=== PATIENT | female | born 1940 | race Caucasian/White ===

== ENCOUNTER 2016-11-07 02:59 | Emergency (ER) | payer OTHER ==
[2016-11-07 03:09] VITALS: RESP 16
--- NOTE | 2016-11-07 03:36 | EDPHY ---
HPI/HX/ROS/PE/MDM Narrative: Chief complaint: Left wrist pain HPI: 76-year-old woman presenting complaining of worsening left wrist pain since about 8 o'clock last night. She denies any falls or trauma. Does have a history of some arthritis in that hand but has never hurt this much before. No redness. No numbness. Is having some tingling. No loss of sensation. Has taken some aspirin without relief. There is no pain proximal to her wrist. No chest pain or shortness of breath. No nausea or vomiting. She has had cellulitis in her legs in the past is concerned that this might represent cellulitis in her arm. Denies any skin neck is are irritations. No scratches. Has not had any rash. ROS: 10 point Review of Systems is negative except as noted in the HPI. Physical exam: Gen: Awake, Alert, No Distress Ext: no edema, she has tenderness along the radial rest and radiocarpal joints. Skin is not warm to touch. There is no erythema. There is some decreased range of motion however patient states that this is baseline. Sensations intact in the radial, median, and ulnar nerve distribution. Cap refills less than 2 seconds. Skin: no rash Neuro: CN II-XII intact, Sensation grossly intact, Strength 5/5 in bilateral upper and lower extremities ED Course: Left wrist x-ray shows degenerative changes but no acute process per my interpretation. 76-year-old with left wrist pain. She is concerned about the possibility of infection but there is no erythema. Not warm to the touch. She has not have any skin breaks or lesions to suggest infectious process. She is afebrile. I have given her a single hydrocodone here. I have instructed her to keep a close eye on it. If there is increasing pain, signs of redness, fevers, chills , or any other concerns that she should have re-presented to the emergency department immediately for further evaluation. Otherwise she will follow with primary care physician in next 1-2 days. - Data Points Medications Given: Discontinued Medications Acetaminophen/Hydrocodone Bitart ([place] 5/325) 1 tab PO EDNOW ONE Stop: 11/07/16 03:42 Last Admin: 11/07/16 04:00 Dose: 1 tab General Time Seen by Provider: 11/07/16 03:29 Initial Vital Signs: Initial Vital Signs Temperature (C) 37.1 C 11/07/16 03:06 Heart Rate 88 11/07/16 03:06 Respiratory Rate 16 11/07/16 03:06 Blood Pressure 156/77 H 11/07/16 03:06 O2 Sat (%) 93 11/07/16 03:06 O2 Delivery Mode Room Air Allergies/Adverse Reactions: No Known Allergies Allergy (Unverified 05/15/10 16:39) Home Medications: Medication Instructions Recorded Estrogens,Conjugated 05/15/10 Hctz 05/15/10 LEXAPRO 05/15/10 Lipitor 10 mg 05/15/10 Norvasc 10 mg 05/15/10 PROGESTERONE 05/15/10 SYNTHROID 05/15/10 Wellbutrin Sr 11/07/16 Departure - Departure Disposition: Home, Routine, Self-Care Clinical Impression: Arthritis Condition: Good Instructions: Hydrocodone/Acetaminophen (By mouth), Osteoarthritis (ED) Additional Instructions: You may take hydrocodone for the pain. Follow up with your primary care physician in the next 1-2 days for re- evaluation. Return to the emergency department for redness, increasing swelling, increasing pain, or other concerns. Referrals: Amy Hidalgo MD [Primary Care Provider] - As per Instructions
[2016-11-07] MEDS ORDERED: HYDROCODONE/APAP 5/325 TAB PO ONE (03:41)
[2016-11-07] MEDS ORDERED: HYDROCOD/APAP 5/325 PREPACK#6 BTL TAKEHOME ONE (04:02)
[2016-11-07 04:14] VITALS: BP 128/76; PULSE 77; TEMP 98.6; O2SAT 91
--- NOTE | 2016-11-07 09:10 | DX ---
Left Wrist, 4 views including a navicular view History: Atraumatic wrist pain Comparison: none Findings: There is severe osteoarthritic change of the greater multangular-first metacarpal joint wi th sclerosis and periarticular degenerative cyst formation and what may be old healed fracture deform ities of the base of the first metacarpal as well is the greater multangular bone. There is mild oste oarthritic narrowing of the joint between the navicular and both multangular bones. This includes a d egenerative cyst in the distal lateral pole of the navicular. There is hypertrophic change of the fir st metacarpal head along with a degenerative cyst in the distal first minute carpal metaphysis. Overall mineralization is normal. Impression: Osteoarthritis, likely posttraumatic.
== END 2016-11-07 04:14 | disposition home or self-care (01) ==
DX: M19.032 Primary osteoarthritis, left wrist (principal)

== ENCOUNTER → 2016-12-16 | Outpatient (CLI) | payer OTHER | LOC: FCPNEURO 23:03 | PROVIDERS: ATTEND Psychiatry & Neurology Sleep Medicine | DX: G47.33 Obstructive sleep apnea (adult) (pediatric) (principal); J96.11 Chronic respiratory failure with hypoxia ==

== ENCOUNTER → 2017-04-19 | Outpatient (CLI) | payer OTHER | LOC: GIMAGING 13:50 | PROVIDERS: ATTEND Registered Nurse | DX: R05 Cough (principal); R50.9 Fever, unspecified; R91.8 Other nonspecific abnormal finding of lung field | CPT/HCPCS: 71020-PO ==

== ENCOUNTER → 2017-06-18 | Outpatient (CLI) | payer OTHER | LOC: FIMAGING 11:13 | PROVIDERS: ATTEND Family Medicine | DX: Z12.31 Encounter for screening mammogram for malignant neoplasm of breast (principal) | CPT/HCPCS: G0202 ==

== ENCOUNTER → 2018-07-16 | Outpatient (CLI) | payer OTHER | LOC: FIMAGING 10:26 | PROVIDERS: ATTEND Family Medicine | DX: Z12.31 Encounter for screening mammogram for malignant neoplasm of breast (principal) ==

== ENCOUNTER → 2018-07-29 | Outpatient (CLI) | payer OTHER | LOC: CIMAGING 12:05 | PROVIDERS: ATTEND Family Medicine | DX: M51.36 Other intervertebral disc degeneration, lumbar region (principal); M17.0 Bilateral primary osteoarthritis of knee | CPT/HCPCS: 72100-PO; 73562-PO ==

== ENCOUNTER 2019-01-20 11:45 | Inpatient (IN) | payer OTHER ==
--- NOTE | 2019-01-20 12:18 | EDPHY ---
H & P Time Seen by Provider: 01/20/19 12:17 HPI/ROS: CHIEF COMPLAINT: Back pain and fever HISTORY OF PRESENT ILLNESS: Patient started having symptoms after last Saturday' s visit to the sleep clinic. She says she is having worsening low to mid back pain which is worse with walking or standing. She has some ongoing back pain and got a steroid injection 3 weeks ago with this is higher and a little bit different than her chronic pain. Associated with a fever of 101 degrees yesterday and today. Pain is also little bit worse with deep breath but no cough and no pain up in her chest. Symptoms moderate to severe and prevented her from really getting around very well. No recent dental work or skin rash or sore throat. REVIEW OF SYSTEMS: Eye: no change in vision ENT: no sore throat Cardiac: no chest pain or syncope Pulmonary: HPI no cough or hemoptysis Abdomen: no vomiting, diarrhea, abdominal pain Musculoskeletal: HPI Skin: no rash Neuro: no headache, no weakness or numbness in legs or feet. No incontinence. Constitutional: HPI : no urinary symptoms A comprehensive 10 point review of systems is otherwise negative aside from elements mentioned in the history of present illness. PAST MEDICAL HISTORY: Includes arthritis, asthma, cholecystectomy, sleep apnea on home O2, hypertension, hyperlipidemia, depression Family history: Positive for venous thromboembolism in her mother and her daughter Social history: Here with her daughter General Appearance: Alert and conversant, cooperative. Eyes: No scleral icterus. ENT, Mouth: Normal mucous membranes. Respiratory: Normal respiratory effort, breath sounds equal, lungs are clear to auscultation. Cardiovascular: Regular rate and rhythm. Gastrointestinal: Abdomen is soft and non tender. Neurological: Alert, face symmetric, normal motor and sensory in extremities. Toes downgoing bilaterally, no clonus, patellar reflexes 1+ symmetric. Skin: Warm and dry, no rashes. Musculoskeletal: Mild CVA tenderness but no midline spinal tenderness. Psychiatric: Not agitated. Emergency Department course/MDM: Results discussed with patient and daughter at 1:28 p.m.. Will treat for pyelonephritis with pyuria back pain and history of fever, CT angio chest with shortness of breath and elevated D-dimer and family history, will extend CT through abdomen pelvis to evaluate for pyelonephritis or perinephric abscess. Ceftriaxone 1 g IV and urine culture sent. Negative CT chest abdomen pelvis per Dr. Panda, except for some haziness around the pancreas. Lipase added. Admission for severity of symptoms. Considered epidural abscess but this point I think it is less likely. Smoking Status: Never smoked Constitutional: Initial Vital Signs Temperature (C) 37.3 C 01/20/19 11:59 Heart Rate 86 01/20/19 11:59 Respiratory Rate 18 01/20/19 11:59 Blood Pressure 138/76 H 01/20/19 11:59 O2 Sat (%) 92 01/20/19 11:59 O2 Delivery Mode Room Air Allergies/Adverse Reactions: No Known Allergies Allergy (Verified 01/20/19 12:05) Home Medications: Medication Instructions Recorded Atorvastatin Calcium [Lipitor 20 20 mg PO DAILY 05/15/10 mg (*)] Escitalopram Oxalate [Lexapro] 20 mg PO DAILY 05/15/10 Hydrochlorothiazide [HCTZ (*)] 25 mg PO DAILY 05/15/10 Levothyroxine [Synthroid 25 mcg 25 mcg PO DAILY06 05/15/10 (*)] amLODIPine BESYLATE [Norvasc 10 mg 10 mg PO DAILY 05/15/10 (*)] buPROPion SR [Wellbutrin 150mg SR 150 mg PO BID 11/07/16 (*)] Aspirin [Aspirin 81mg (*)] 81 mg PO DAILY 01/20/19 Medical Decision Making - Diagnostics EKG Interpretation: 12-lead EKG interpreted by me; official reading is in computer system. My interpretation is sinus rhythm rate 84 with low voltage Imaging Results: Imaging Impressions Chest X-Ray 01/20/19 12:30 Impression: 1. Possible cardiomegaly without decompensation. When the patient is clinically able a routine PA chest would be useful to better evaluate the cardiothoracic ratio. 2. COPD, without pneumonia. Abdomen CT 01/20/19 13:24 Impression: 1. No acute PE or abdominopelvic process by CT. 2. Mild haziness around the pancreatic uncinate process likely represents fat invagination. If there are symptoms, would recommend obtaining a lipase value. 3. Non-obstructing right renal stone. 4. There is a 2.6 cm lesion in the uterus, probably an intramural to submucosal fibroid. Would consider ultrasound for confirmation. Findings and recommendations discussed with EDGAR PARRISH at 1441 hour, 2018. Chest/Thorax CTA 01/20/19 13:24 Impression: 1. No acute PE or abdominopelvic process by CT. 2. Mild haziness around the pancreatic uncinate process likely represents fat invagination. If there are symptoms, would recommend obtaining a lipase value. 3. Non-obstructing right renal stone. 4. There is a 2.6 cm lesion in the uterus, probably an intramural to submucosal fibroid. Would consider ultrasound for confirmation. Findings and recommendations discussed with EDGAR PARRISH at 1441 hour, 2018. Imaging: Discussed imaging studies w/ call center supervisor Radiologist Differential Diagnosis: Differential considered including but not limited to PE, pyelonephritis, epidural abscess, diskitis, pancreatitis Consult/Admit Bed Type: [place] [address] - Data Points Laboratory Results: Laboratory Results 01/20/19 12:36 01/20/19 12:36 01/20/19 01/20/19 01/20/19 12:36 12:36 12:36 WBC RBC Hgb Hct MCV MCH MCHC RDW Plt Count MPV Neut % (Auto) Lymph % (Auto) [place] % (Auto) Eos % (Auto) Baso % (Auto) Nucleat RBC Rel Count Absolute Neuts (auto) Absolute Lymphs (auto) Absolute Monos (auto) Absolute Eos (auto) Absolute Basos (auto) Absolute Nucleated RBC Immature Gran % Immature Gran # ESR D-Dimer 1.20 ug/mLFEU H ug/mLFEU (0.00-0.50) Sodium 137 mEq/L mEq/L (135-145) Potassium 3.3 mEq/L L mEq/L (3.5-5.2) Chloride 102 mEq/L mEq/L (97-110) Carbon Dioxide 25 mEq/l mEq/l (22-31) Anion Gap 10 mEq/L mEq/L (6-14) BUN 17 mg/dL mg/dL (7-23) Creatinine 0.8 mg/dL mg/dL (0.6-1.0) Estimated GFR > 60 Glucose 97 mg/dL mg/dL (70-100) Calcium 9.0 mg/dL mg/dL (8.5-10.4) Total Bilirubin 2.6 mg/dL H mg/dL (0.1-1.4) Conjugated Bilirubin 0.4 mg/dL mg/dL (0.0-0.5) Unconjugated Bilirubin 2.2 mg/dL H mg/dL (0.0-1.1) AST 29 IU/L IU/L (14-46) ALT 41 IU/L IU/L (9-52) Alkaline Phosphatase 101 IU/L IU/L (38-126) C-Reactive Protein 74.7 mg/L H mg/L (<10.0) Total Protein 6.4 g/dL g/dL (6.3-8.2) Albumin 3.6 g/dL g/dL (3.5-5.0) Lipase 55 IU/L IU/L (23-300) Urine Color Urine Appearance Urine pH Ur Specific [place] Urine Protein Urine Ketones Urine Blood Urine Nitrate Urine Bilirubin Urine Urobilinogen Ur Leukocyte Esterase Urine RBC Urine WBC Ur Epithelial Cells Urine Mucus Urine Glucose 01/20/19 01/20/19 12:36 12:20 WBC 11.79 10^3/uL H 10^3/uL (3.80-9.50) RBC 4.15 10^6/uL L 10^6/uL (4.18-5.33) Hgb 12.2 g/dL L g/dL (12.6-16.3) Hct 36.0 % L % (38.0-47.0) MCV 86.7 fL fL (81.5-99.8) MCH 29.4 pg pg (27.9-34.1) MCHC 33.9 g/dL g/dL (32.4-36.7) RDW 14.7 % % (11.5-15.2) Plt Count 236 10^3/uL 10^3/uL (150-400) MPV 10.8 fL fL (8.7-11.7) Neut % (Auto) 74.7 % H % (39.3-74.2) Lymph % (Auto) 13.7 % L % (15.0-45.0) [place] % (Auto) 10.2 % % (4.5-13.0) Eos % (Auto) 0.8 % % (0.6-7.6) Baso % (Auto) 0.3 % % (0.3-1.7) Nucleat RBC Rel Count 0.0 % % (0.0-0.2) Absolute Neuts (auto) 8.80 10^3/uL H 10^3/uL (1.70-6.50) Absolute Lymphs (auto) 1.62 10^3/uL 10^3/uL (1.00-3.00) Absolute Monos (auto) 1.20 10^3/uL H 10^3/uL (0.30-0.80) Absolute Eos (auto) 0.09 10^3/uL 10^3/uL (0.03-0.40) Absolute Basos (auto) 0.04 10^3/uL 10^3/uL (0.02-0.10) Absolute Nucleated RBC 0.00 10^3/uL 10^3/uL (0-0.01) Immature Gran % 0.3 % % (0.0-1.1) Immature Gran # 0.04 10^3/uL 10^3/uL (0.00-0.10) ESR 67 MM/HR H MM/HR (0-30) D-Dimer Sodium Potassium Chloride Carbon Dioxide Anion Gap BUN Creatinine Estimated GFR Glucose Calcium Total Bilirubin Conjugated Bilirubin Unconjugated Bilirubin AST ALT Alkaline Phosphatase C-Reactive Protein Total Protein Albumin Lipase Urine Color KIMO Urine Appearance HAZY Urine pH 5.0 (5.0-7.5) Ur Specific [place] 1.023 (1.002-1.030) Urine Protein NEGATIVE (NEGATIVE) Urine Ketones NEGATIVE (NEGATIVE) Urine Blood 1+ H (NEGATIVE) Urine Nitrate NEGATIVE (NEGATIVE) Urine Bilirubin NEGATIVE (NEGATIVE) Urine Urobilinogen 4.0 EU H EU (0.2-1.0) Ur Leukocyte Esterase 3+ H (NEGATIVE) Urine RBC NONE SEEN /hpf /hpf (0-3) Urine WBC 25-50 /hpf H /hpf (0-3) Ur Epithelial Cells TRACE /lpf /lpf (NONE-1+) Urine Mucus 2+ /lpf H /lpf (NONE-1+) Urine Glucose NEGATIVE (NEGATIVE) Medications Given: Discontinued Medications Ceftriaxone Sodium/Dextrose (Rocephin 1 Gm (Premix)) 50 mls @ 100 mls/hr IV EDNOW ONE PRN Reason: Protocol Stop: 01/20/19 13:58 Last Admin: 01/20/19 13:36 Dose: 50 mls Sodium Chloride (Ns) 1,000 mls @ 0 mls/hr IV ONCE ONE; Wide Open PRN Reason: Protocol Stop: 01/20/19 13:30 Last Admin: 01/20/19 13:36 Dose: 1,000 mls Departure - Departure Disposition: [facility] Clinical Impression: Pyelonephritis, acute Condition: Good
[2019-01-20 12:53] LABS: PLATELET COUNT 236 10^3/uL (150-400)
--- NOTE | 2019-01-20 12:53 | CPEKG ---
Test Reason : OPEN Blood Pressure : / mmHG Vent. Rate : 084 BPM Atrial Rate : 084 BPM P-R Int : 156 ms QRS Dur : 090 ms QT Int : 404 ms P-R-T Axes : 030 011 042 degrees QTc Int : 478 ms Sinus rhythm Low voltage, precordial leads Confirmed by Edgar Parrish ([id number]) on 01/20/2019 12:52:39 PM Referred By: EDGAR PARRISH Confirmed By:Edgar Parrish
[2019-01-20] MEDS ORDERED: NS 1,000 ML IV ONE (13:29)
[2019-01-20] MEDS ORDERED: IOPAMIDOL (ISOVUE-370) 150 ML BTL IV ONE (13:50)
[2019-01-20] MEDS ORDERED: ONDANSETRON 4 MG/2 ML VIAL IVP PRN (15:54)
[2019-01-20] MEDS ORDERED: ONDANSETRON DISINTEGRATING 4 MG TAB PO PRN (15:54)
[2019-01-20] MEDS ORDERED: oxyCODONE IR 5 MG TAB PO PRN (15:54)
[2019-01-20] MEDS: NS 1,000 ML IV SCH (16:38)
--- NOTE | 2019-01-20 16:44 | GHP ---
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 She has chronic back pain and abou t 3 weeks ago got what sounds like an epidural steroid injection at [facility]. On Saturday evening, s he developed some fevers. They got progressively worse over the weekend. There are no drenching nig ht sweats. No confusion or dizziness, but she did have a fever as high as 101 degrees Fahrenheit. S he sought care today. She has had no lower extremity weakness. She says the pain is in a similar area to her epidural ster oid injection. She did get a whole lot of relief from that. She has not had headaches, not had naus ea, vomiting, diarrhea. She has not had rhinorrhea or upper respiratory infection. Not had cough or shortness of breath. There has been no discharge. No fluctuant area at the site of her steroid injection. REVIEW OF SYSTEMS: Complete 10-point review of systems conducted and negative except as noted in the HPI. PAST MEDICAL HISTORY: Hypertension, hypothyroidism, obstructive sleep apnea on CPAP with oxygen, his tory of cholecystectomy, hyperlipidemia, depression. FAMILY HISTORY: Notable for venous thromboembolism embolism in her mother and daughter. SOCIAL HISTORY: No tobacco, no alcohol. 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 Lives in [place]. ALLERGIES: No known drug allergies. HOME MEDICATIONS: Amlodipine, aspirin, atorvastatin, bupropion, escitalopram, hydrochlorothiazide, l evothyroxine. PHYSICAL EXAMINATION: PRESENTING VITALS: Temperature 37.3, blood pressure 138/76, pulse 86, breathi ng 18 times a minute, 90% on room air. GENERAL: In no acute distress. HEENT: Sclerae anicteric. Oropharynx clear. Mucous membranes moist. NECK: Supple without lymphadenopathy or JVD. LUNGS: Cl ear to auscultation bilaterally. HEART: S1, S2 without tachycardia. ABDOMEN: Soft, nontender, non distended. BACK: Her lumbar spine, I can see evidence of an old injection without areas of fluctuan ce or erythema. There is no warmth over the area. There is no pain with deep palpation. Her pain e xtends beyond those areas. SKIN: Without rash. NEUROLOGIC: Nonfocal. LABS: White count 11.8 with a left shift, hematocrit 36, platelets are 236,000. D-dimer is elevated at 1.2. Sodium 137, potassium 3.83, chloride 102, bicarb 25, BUN 17, creatinine 0.8, glucose 97. B ilirubin is 2.6 which is primarily unconjugated. LFTs otherwise unremarkable. Lipase 55. CRP is el evated at 75. UA shows leukocyte esterase and 25-50 white cells. DIAGNOSTIC DATA: CTA of the chest shows no pulmonary embolism. There is no abdominopelvic acute pro cess. She has some haziness around uncinate process of the pancreas. She has a right renal stone. A 2.6 lesion in the uterus which is probably a fibroid. I discussed the case with Dr. Nj Pringle. ASSESSMENT AND PLAN: A 78-year-old female with probable pyelonephritis. 1. Pyelonephritis. I think it is reasonable to treat her for this with ceftriaxone 2 g q.24. She h as pyuria and back pain and fevers. The fever has been going on for a bit of time suggesting there i s time to be an ascending urinary tract infection. I would order a set of blood cultures as well. 2. Question infection from steroid injection. I do not believe this is going on. I do have concern that this could happen, however, given the absence of physical exam findings in the area of the her injection, I think this is less likely. But for this reason, I will draw some blood cultures. 3. Hypertension. Continue her medicines. 4. Sleep apnea. Continue her medicines. 5. Hypothyroidism. Continue her medicines. 6. Pain. As needed oxycodone. 7. Family history of venous thromboembolism. She is currently admitted to observation status. If s he does not go home tomorrow, then she needs low-molecular heparin. DISPOSITION: Observation status. /[id number]/MODL
[2019-01-20] MEDS: buPROPion SR 150 MG TAB PO SCH (21:47)
[2019-01-20] MEDS: ACETAMINOPHEN 325 MG TAB PO PRN (21:51)
[2019-01-21] MEDS: NS 1,000 ML IV SCH (02:37)
[2019-01-21 04:39] LABS: PLATELET COUNT 207 10^3/uL (150-400)
[2019-01-21] MEDS ORDERED: LEVOTHYROXINE 25 MCG TAB PO SCH (06:00)
[2019-01-21] MEDS ORDERED: PROTOCOL MAGNESIUM 1 DOSE IV PRN (08:33)
[2019-01-21] MEDS ORDERED: PROTOCOL POTASSIUM 1 DOSE MISC PRN (08:33)
[2019-01-21] MEDS ORDERED: HYDROCHLOROTHIAZIDE 25 MG TAB PO SCH (09:00)
--- NOTE | 2019-01-21 09:10 | ASMTCMCOM ---
CM Note CM Note Notes: Met with pt and chart reviewed for discharge. Selena is a 78yr old Adm with back pain which worsens with Ambulation and fever, Pyelonephritis. Pt Hx of arthritis, asthma, Home O2, HTN, Depression. Pt live in [place] with her grandson and has a daughter (Sabina [phone]) that lives in [place]. Pt will likely return home Independently when medically clear. CM available for needs. PLAN: Home independently Date Signed: 01/21/2019 09:09 AM Electronically Signed By:Vandana Donnelly
[2019-01-21] MEDS ORDERED: POTASSIUM CL 10 MEQ TAB PO ONE (09:57)
[2019-01-21] MEDS: buPROPion SR 150 MG TAB PO SCH ×2 (10:08→20:11)
[2019-01-21] MEDS: ASPIRIN 81 MG CHEWABLE TAB PO SCH (10:08)
[2019-01-21] MEDS: ESCITALOPRAM OXALATE 10 MG TAB PO SCH (10:09)
[2019-01-21] MEDS: ATORVASTATIN CALCIUM 20 MG TAB PO SCH (10:09)
[2019-01-21] MEDS: ACETAMINOPHEN 325 MG TAB PO PRN (13:11)
[2019-01-21] MEDS ORDERED: LEVOTHYROXINE 25 MCG TAB PO ONE (14:00)
[2019-01-21] MEDS: ALBUTEROL 3 ML DEYVIAL IH SCH ×2 (14:09→19:05)
--- NOTE | 2019-01-21 14:09 | HOSPPROG ---
Hospitalist Progress Note Assessment/Plan: #Pyelonephritis -cont Rocephin -Await cx -ok to stop IVF #hx of HTN -hold bp meds today #Cough, hx of Asthma -trial of bronchodilator #chronic back pain #Weakness and Deconditioning -PT/OT #Hypokalemia -replace per protocol Subjective: feels better overall. still with some back pain but better. cough and cp when taking a deep breath only. has a hx of asthma Objective: Vital Signs Temp Pulse Resp BP Pulse Ox 36.9 C 72 16 113/61 95 01/21/19 08:00 01/21/19 08:00 01/21/19 08:00 01/21/19 08:00 01/21/19 08:00 Laboratory Results 01/21/19 04:06 01/21/19 04:06 01/20/19 01/21/19 01/22/19 05:59 05:59 05:59 Intake Total 2275 450 Output Total 950 700 Balance 1325 -250 - Physical Exam Constitutional: no apparent distress Eyes: PERRL, EOMI Ears, Nose, Mouth, Throat: moist mucous membranes, hearing normal Cardiovascular: regular rate and rhythym, No edema Respiratory: no respiratory distress, reduced air movement, expiratory wheeze Gastrointestinal: normoactive bowel sounds, soft, non-tender abdomen Skin: warm Neurologic: AAOx3 Psychiatric: interacting appropriately, not anxious, not encephalopathic Lymph, Heme, Immunologic: No petechiae ICD10 Worksheet Patient Problems: Problems Problem Status Onset Pyelonephritis, acute Acute
--- NOTE | 2019-01-21 15:40 | PDMN ---
Medical Necessity Medical necessity: Change to IP, as of 01/21/19, per & MCG M-300; los >2 mn for ongoing management of pyelonenephritis; requiring further monitoring & IV abx
[2019-01-21] MEDS ORDERED: POTASSIUM CL 20 MEQ TAB PO ONE (21:19)
[2019-01-22] MEDS: ALBUTEROL 3 ML DEYVIAL IH SCH ×4 (05:48→20:37)
[2019-01-22] MEDS: LEVOTHYROXINE 25 MCG TAB PO SCH (06:29)
[2019-01-22] MEDS ORDERED: POTASSIUM CL 10 MEQ TAB PO ONE (07:06)
[2019-01-22] MEDS: ESCITALOPRAM OXALATE 10 MG TAB PO SCH (08:46)
[2019-01-22] MEDS: ATORVASTATIN CALCIUM 20 MG TAB PO SCH (08:46)
[2019-01-22] MEDS: buPROPion SR 150 MG TAB PO SCH ×2 (08:46→20:25)
[2019-01-22] MEDS: ASPIRIN 81 MG CHEWABLE TAB PO SCH (08:47)
--- NOTE | 2019-01-22 11:51 | HOSPPROG ---
Hospitalist Progress Note Assessment/Plan: #Pyelonephritis -cont Rocephin -Await cx #hx of HTN -hold bp meds today, monitor today #Cough, hx of Asthma -cont bronchodilator -start Pred burst #chronic back pain -Add Tramadol #Weakness and Deconditioning -PT/OT #Hypokalemia -replace per protocol Dispo: keep inpatient, not ready for d/c. Home independently soon, not today Subjective: still with sob, worse with activity. no edema. no cp. afebrile. back pain is better. Objective: Vital Signs Temp Pulse Resp BP Pulse Ox 36.6 C 78 18 133/72 H 94 01/22/19 07:26 01/22/19 07:26 01/22/19 07:26 01/22/19 07:26 01/22/19 07:26 Laboratory Results 01/22/19 04:18 01/21/19 01/22/19 01/23/19 05:59 05:59 05:59 Intake Total 400 Output Total 1225 Balance -825 - Physical Exam Constitutional: no apparent distress Eyes: PERRL, EOMI Ears, Nose, Mouth, Throat: moist mucous membranes, hearing normal Cardiovascular: regular rate and rhythym Respiratory: no respiratory distress, reduced air movement Gastrointestinal: normoactive bowel sounds, soft, non-tender abdomen Skin: warm Neurologic: AAOx3 Psychiatric: interacting appropriately, not anxious, not encephalopathic Lymph, Heme, Immunologic: No petechiae ICD10 Worksheet Patient Problems: Problems Problem Status Onset Pyelonephritis, acute Acute
[2019-01-22] MEDS: predniSONE 20 MG TAB PO SCH (12:37)
[2019-01-22] MEDS: traMADol 50 MG TAB PO PRN (12:37)
[2019-01-23] MEDS: LEVOTHYROXINE 25 MCG TAB PO SCH (06:09)
[2019-01-23] MEDS: ALBUTEROL 3 ML DEYVIAL IH SCH ×4 (06:14→20:42)
[2019-01-23] MEDS: ASPIRIN 81 MG CHEWABLE TAB PO SCH (08:53)
[2019-01-23] MEDS: ATORVASTATIN CALCIUM 20 MG TAB PO SCH (08:53)
[2019-01-23] MEDS: ESCITALOPRAM OXALATE 10 MG TAB PO SCH (08:53)
[2019-01-23] MEDS: predniSONE 20 MG TAB PO SCH (08:53)
[2019-01-23] MEDS: buPROPion SR 150 MG TAB PO SCH ×2 (08:53→20:37)
[2019-01-23] MEDS: traMADol 50 MG TAB PO PRN (08:59)
--- NOTE | 2019-01-23 11:45 | ASMTCMCOM ---
CM Note CM Note Notes: Plan of care reviewed in interdisciplinary rounds, patient likely to discharge tomorrow. Per therapy should be independent and attend outpatient therapy. CM available should needs arise. Plan: Dc to home independently when medically cleared for discharge. Date Signed: 01/23/2019 11:44 AM Electronically Signed By:Aileen Bertrand RN
--- NOTE | 2019-01-23 16:26 | HOSPPROG ---
Hospitalist Progress Note Assessment/Plan: #Pyelonephritis -cont Rocephin -Cultures are non revealing but has responded to abx substantially so will finish course #hx of HTN -restart Amlodipine -cont to hold HCTZ #Cough, hx of Asthma, significantly improved -cont bronchodilator -cont Pred burst #chronic back pain -cont Tramadol #Weakness and Deconditioning -PT/OT -still weak, will be able to d/c home #Hypokalemia -replace per protocol Dispo: keep inpatient, not ready for d/c. Home independently likely tomorrow Subjective: sob is significantly improving. still weak but this is improving as well. Objective: Vital Signs Temp Pulse Resp BP Pulse Ox 36.7 C 81 18 118/63 92 01/23/19 16:01 01/23/19 16:01 01/23/19 16:01 01/23/19 16:01 01/23/19 16:01 Laboratory Results 01/22/19 04:18 01/22/19 01/23/19 01/24/19 05:59 05:59 05:59 Intake Total 400 500 Output Total 1225 1200 Balance -825 -700 - Physical Exam Constitutional: no apparent distress Eyes: PERRL, EOMI Ears, Nose, Mouth, Throat: moist mucous membranes, hearing normal, ears appear normal Cardiovascular: regular rate and rhythym, No edema Respiratory: no respiratory distress, clear to auscultation Gastrointestinal: normoactive bowel sounds, soft, non-tender abdomen Skin: warm Musculoskeletal: generalized weakness Neurologic: AAOx3 Psychiatric: interacting appropriately, not anxious, not encephalopathic Lymph, Heme, Immunologic: No petechiae ICD10 Worksheet Patient Problems: Problems Problem Status Onset Pyelonephritis, acute Acute
[2019-01-24] MEDS: LEVOTHYROXINE 25 MCG TAB PO SCH (05:44)
[2019-01-24] MEDS: ALBUTEROL 3 ML DEYVIAL IH SCH ×2 (05:49→10:40)
[2019-01-24 07:48] VITALS: BP 139/77
[2019-01-24] MEDS: ESCITALOPRAM OXALATE 10 MG TAB PO SCH (09:04)
[2019-01-24] MEDS: predniSONE 20 MG TAB PO SCH (09:04)
[2019-01-24] MEDS: ASPIRIN 81 MG CHEWABLE TAB PO SCH (09:04)
[2019-01-24] MEDS: buPROPion SR 150 MG TAB PO SCH (09:04)
[2019-01-24] MEDS: ATORVASTATIN CALCIUM 20 MG TAB PO SCH (09:04)
--- NOTE | 2019-01-24 13:19 | ASMTLACE ---
JADA Length of stay for Answers: 3 days current admission Comorbidities - select Answers: Other Notes: Chronic Back Pain, all that apply # of Emergency department Answers: 1-2 visits in the last 6 months Score: 5 Date Signed: 01/24/2019 01:18 PM Electronically Signed By:Aileen Bertrand RN
--- NOTE | 2019-01-24 13:19 | PDDCSUM ---
Discharge Summary Discharge Summary: This is a 78 yo female admitted with Pyelonephritis and Asthma exacerbation. She was treated accordingly per below #Pyelonephritis -was on Rocephin. cont Cefdinir 2 more days -Cultures are non revealing but has responded to abx substantially so will finish course #hx of HTN -restarted Amlodipine -cont to hold HCTZ #Astham exacerbation: Cough, hx of Asthma, significantly improved -cont bronchodilator -cont Pred burst #chronic back pain #Weakness and Deconditioning -PT/OT -did not want SNF or home health care #Hypokalemia -replaced per protocol Exam: NAD AAOX3 RRR CTA B S/NT/ND MEDS: SEE MED REC F/U: WITH PCP NEXT WEEK
--- NOTE | 2019-01-24 13:24 | ASMTDCNOTE ---
Case Management Discharge Discharge Order Complete? Answers: Yes Patient to Obtain Answers: Independently Medications Transportation Arranged Answers: Family/Friends Faxed Final Orders Answers: No Family Notified Answers: Yes Discharge Comments Notes: Patient medically cleared for independent discharge to home. VCM available should needs arise. Date Signed: 01/24/2019 01:23 PM Electronically Signed By:Aileen Bertrand RN
== END 2019-01-24 14:45 | disposition home or self-care (01) | DRG 690 ==
LOC: INTOOBSV 14:30 → F1N 14:58 → OBSVTOIN 01-21 14:13
PROVIDERS: ADMIT Internal Medicine; ATTEND Internal Medicine
DX: N12 Tubulo-interstitial nephritis, not specified as acute or chronic (principal); J45.901 Unspecified asthma with (acute) exacerbation; E86.9 Volume depletion, unspecified; I10 Essential (primary) hypertension; G89.29 Other chronic pain; E87.6 Hypokalemia; G47.30 Sleep apnea, unspecified; E78.5 Hyperlipidemia, unspecified; E03.9 Hypothyroidism, unspecified; Z23 Encounter for immunization
CPT/HCPCS: 96374; 97116-GP; 97161-GP; G0008; G0378; J0696; J7512; J7613; Q9967

== ENCOUNTER 2019-02-07 14:51 | Emergency (ER) | payer OTHER ==
[2019-02-07] MEDS ORDERED: NS 1,000 ML IV ONE (15:03)
--- NOTE | 2019-02-07 15:13 | EDPHY ---
H & P Time Seen by Provider: 02/07/19 14:59 HPI/ROS: Chief complaint. Fever, back pain HPI. 78-year-old female presents with fever and low back pain she has a history of chronic low back pain. She was admitted to the hospital January 20 for pyelonephritis. At that time she had back pain. She has now received a epidural steroid injection 6 weeks ago. CV was discharged January 24. She continues to have her chronic low back pain. She saw her PCP 1 week ago and apparently showed infection. She was treated with amoxicillin for UTI. She has had amoxicillin for 5 days. She has been running fevers 99-100 degrees. She has no urinary symptoms. No abdominal pain. No upper respiratory symptoms or cough. No radiation of her back pain to her legs. No leg weakness. No bowel or bladder symptoms. Patient is concerned that she may still have a urinary tract infection ROS 10 systems were reviewed and negative with the exception of the elements mentioned in the history of present illness Past Medical/Surgical History: Chronic back pain, arthritis, asthma, cholecystectomy, sleep apnea with oxygen at night, hypertension, dyslipidemia, depression Social History: , nonsmoker, no alcohol Smoking Status: Never smoked Physical Exam: General Appearance: Alert pleasant well-developed female mild distress vital signs are stable. Afebrile Eyes: Pupils equal and round no pallor or injection. ENT, Mouth: Mucous membranes are moist. Respiratory: There are no retractions, lungs are clear to auscultation. Cardiovascular: Regular rate and rhythm. Gastrointestinal: Abdomen is soft and nontender, no masses, bowel sounds normal. Neurological: Awake and alert, sensory and motor exams grossly normal. Skin: Warm and dry, no rashes. Musculoskeletal: Neck is supple nontender. Diffuse discomfort in the lumbar area Extremities symmetrical, full range of motion. Psychiatric: Patient is oriented X 3, there is no agitation. Constitutional: Initial Vital Signs Temperature (C) 36.7 C 02/07/19 14:51 Heart Rate 95 02/07/19 14:51 Respiratory Rate 16 02/07/19 14:51 Blood Pressure 145/84 H 02/07/19 14:51 O2 Sat (%) 94 02/07/19 14:51 O2 Delivery Mode Room Air Allergies/Adverse Reactions: No Known Allergies Allergy (Verified 02/07/19 14:57) Home Medications: Medication Instructions Recorded Atorvastatin Calcium [Lipitor 20 20 mg PO DAILY 05/15/10 mg (*)] Escitalopram Oxalate [Lexapro] 20 mg PO DAILY 05/15/10 Levothyroxine [Synthroid 25 mcg 37.5 mcg PO DAILY06 05/15/10 (*)] amLODIPine BESYLATE [Norvasc 10 mg 10 mg PO DAILY 05/15/10 (*)] buPROPion SR [Wellbutrin 150mg SR 150 mg PO BID 11/07/16 (*)] Aspirin [Aspirin 81mg (*)] 81 mg PO DAILY 01/20/19 Hydrochlorothiazide 02/07/19 Medical Decision Making Procedures: IV normal saline Review of urine culture from January 30 shows enterococcus faecalis with colony count [id number]. It is sensitive to ampicillin ED Course/Re-evaluation: Re-evaluation patient is stable. She and I discussed laboratory evaluation and normal urinalysis. We discussed the cultures that were done last week and the fact that the amoxicillin appears to be a antibiotic the covers her urinary tract infection. We talked about her low back pain though she feels this is fairly typical. She and I discussed MRI of her back but she feels that there is no acute change. Differential Diagnosis: I considered urinary tract infection and pyelonephritis. Patient has an elevated white blood cell count and I am not quite sure the etiology of this. There is no evidence for infection. Patient did have a steroid epidural injection 6 weeks ago. She does have low back pain that she tells me is the same. There is no evidence for cauda equina syndrome. - Data Points Laboratory Results: Laboratory Results 02/07/19 15:15 02/07/19 15:15 02/07/19 02/07/19 02/07/19 18:00 15:15 15:15 WBC 13.39 10^3/uL H 10^3/uL (3.80-9.50) RBC 4.47 10^6/uL 10^6/uL (4.18-5.33) Hgb 13.0 g/dL g/dL (12.6-16.3) Hct 38.6 % % (38.0-47.0) MCV 86.4 fL fL (81.5-99.8) MCH 29.1 pg pg (27.9-34.1) MCHC 33.7 g/dL g/dL (32.4-36.7) RDW 14.7 % % (11.5-15.2) Plt Count 286 10^3/uL 10^3/uL (150-400) MPV 10.4 fL fL (8.7-11.7) Neut % (Auto) 78.2 % H % (39.3-74.2) Lymph % (Auto) 9.9 % L % (15.0-45.0) [place] % (Auto) 9.9 % % (4.5-13.0) Eos % (Auto) 1.2 % % (0.6-7.6) Baso % (Auto) 0.4 % % (0.3-1.7) Nucleat RBC Rel Count 0.0 % % (0.0-0.2) Absolute Neuts (auto) 10.47 10^3/uL H 10^3/uL (1.70-6.50) Absolute Lymphs (auto) 1.32 10^3/uL 10^3/uL (1.00-3.00) Absolute Monos (auto) 1.33 10^3/uL H 10^3/uL (0.30-0.80) Absolute Eos (auto) 0.16 10^3/uL 10^3/uL (0.03-0.40) Absolute Basos (auto) 0.06 10^3/uL 10^3/uL (0.02-0.10) Absolute Nucleated RBC 0.00 10^3/uL 10^3/uL (0-0.01) Immature Gran % 0.4 % % (0.0-1.1) Immature Gran # 0.05 10^3/uL 10^3/uL (0.00-0.10) Sodium 136 mEq/L mEq/L (135-145) Potassium 3.1 mEq/L L mEq/L (3.5-5.2) Chloride 101 mEq/L mEq/L (97-110) Carbon Dioxide 23 mEq/l mEq/l (22-31) Anion Gap 12 mEq/L mEq/L (6-14) BUN 17 mg/dL mg/dL (7-23) Creatinine 0.9 mg/dL mg/dL (0.6-1.0) Estimated GFR > 60 Glucose 99 mg/dL mg/dL (70-100) Calcium 9.5 mg/dL mg/dL (8.5-10.4) Urine Color PALE YELLOW Urine Appearance CLEAR Urine pH 6.0 (5.0-7.5) Ur Specific [place] 1.006 (1.002-1.030) Urine Protein NEGATIVE (NEGATIVE) Urine Ketones NEGATIVE (NEGATIVE) Urine Blood 1+ H (NEGATIVE) Urine Nitrate NEGATIVE (NEGATIVE) Urine Bilirubin NEGATIVE (NEGATIVE) Urine Urobilinogen NEGATIVE EU EU (0.2-1.0) Ur Leukocyte Esterase NEGATIVE (NEGATIVE) Urine RBC 1-3 /hpf /hpf (0-3) Urine WBC 0-1 /hpf /hpf (0-3) Ur Epithelial Cells NONE SEEN /lpf /lpf (NONE-1+) Urine Mucus TRACE /lpf /lpf (NONE-1+) Urine Glucose NEGATIVE (NEGATIVE) Medications Given: Discontinued Medications Sodium Chloride (Ns) 1,000 mls @ 0 mls/hr IV EDNOW ONE; Wide Open PRN Reason: Protocol Stop: 02/07/19 15:04 Last Admin: 02/07/19 15:17 Dose: 1,000 mls Departure - Departure Disposition: Home, Routine, Self-Care Clinical Impression: Low back pain Qualifiers: Chronicity: chronic Back pain laterality: midline Sciatica presence: without sciatica Qualified Code(s): M54.5 - Low back pain Condition: Good Instructions: Back Pain (ED) Additional Instructions: Continue the amoxicillin until finished. Drink plenty of fluids and stay hydrated Return for worsening symptoms including fever, worsening back pain Recheck on Saturday if not back to normal Referrals: Amy Hidalgo MD [Primary Care Provider] - 2-3 days, if not improved
[2019-02-07 15:34] LABS: PLATELET COUNT 286 10^3/uL (150-400)
[2019-02-07 19:22] VITALS: BP 140/76
== END 2019-02-07 19:22 | disposition home or self-care (01) ==
DX: M54.5 Low back pain (principal); I10 Essential (primary) hypertension; E86.9 Volume depletion, unspecified

== ENCOUNTER 2019-02-24 16:26 | Emergency (ER) | payer OTHER ==
--- NOTE | 2019-02-24 16:35 | EDPHY ---
H & P Stated Complaint: atraumatic left foot pain x 3 days Time Seen by Provider: 02/24/19 16:33 HPI/ROS: CHIEF COMPLAINT: Atraumatic left foot pain HISTORY OF PRESENT ILLNESS: Patient is a 78-year-old female who comes to the emergency department from [place] by EMS complaining of left foot pain for 3 days. She denies any trauma or injury. She states that she has pain on the bridge of her foot that hurts with weight-bearing. Today she felt like it was slightly swollen and became concerned. The swelling however has resolved now by the time she is in the ER. No erythema. No fever. No history of gout. She does have a history of arthritis but is primarily had in her knees and hands. No pain in her toes or ankle. Chronic pain in her knees that are unchanged. Severity: Moderate Modifying factors: None REVIEW OF SYSTEMS: Constitutional: denies: chills, fever, recent illness, recent injury EENTM: denies: blurred vision, double vision, nose congestion Respiratory: denies: cough, shortness of breath Cardiac: denies: chest pain, irregular heart rate, lightheadedness, palpitations Gastrointestinal/Abdominal: denies: abdominal pain, diarrhea, nausea, vomiting, blood streaked stools Genitourinary: denies: dysuria, frequency, hematuria, pain Musculoskeletal: See HPI Skin: denies: lesions, rash, jaundice, bruising Neurological: denies: headache, numbness, paresthesia, tingling, dizziness, weakness Hematologic/Lymphatic: denies: blood clots, easy bleeding, easy bruising Immunologic/allergic: denies: HIV/AIDS, transplant 10 systems reviewed and negative except as noted EXAM: GENERAL: Well-appearing, well-nourished and in no acute distress. HEAD: Atraumatic, normocephalic. EYES: Pupils equal round and reactive to light, extraocular movements intact, sclera anicteric, conjunctiva are normal. ENT: TMs normal, nares patent, oropharynx clear without exudates. Moist mucous membranes. NECK: Normal range of motion, supple without lymphadenopathy or JVD. LUNGS: Breath sounds clear to auscultation bilaterally and equal. No wheezes rales or rhonchi. HEART: Regular rate and rhythm without murmurs, rubs or gallops. ABDOMEN: Soft, nontender, normoactive bowel sounds. No guarding, no rebound. No masses appreciated. BACK: No CVA tenderness, no spinal tenderness, step-offs or deformities EXTREMITIES: Normal range of motion, no pitting or edema. No clubbing or cyanosis. Strong pulses in feet bilaterally. No erythema. No visible swelling or venous congestion. No calf pain. She does have pain with weight- bearing. NEUROLOGICAL: Cranial nerves II through XII grossly intact. Normal speech, pain with ambulation and weight-bearing on the left foot. 5/5 strength, normal movement in all extremities, normal sensation, normal reflexes PSYCH: Normal mood, normal affect. SKIN: Warm, dry, normal turgor, no visible rashes or lesions. Source: Patient Exam Limitations: No limitations - Personal History Current Tetanus/Diphtheria Vaccine: Yes - Medical/Surgical History Hx Asthma: Yes Hx Chronic Respiratory Disease: No Hx Diabetes: No Hx Cardiac Disease: Yes Hx Renal Disease: No Hx Cirrhosis: No Hx Alcoholism: No Hx HIV/AIDS: No Hx Splenectomy or Spleen Trauma: No Other PMH: arthrtitis, asthma, cholecystectomy, sleep apnea, home O2 at night, hypertension, hyperlipidemia, depression, bilat carpal tunnel surg, miniscus repair L knee, eye surg - Family History Significant Family History: No pertinent family hx - Social History Smoking Status: Never smoked Alcohol Use: None Constitutional: Initial Vital Signs Temperature (C) 37.4 C 02/24/19 16:30 Heart Rate 94 02/24/19 16:30 Respiratory Rate 16 02/24/19 16:30 Blood Pressure 150/80 H 02/24/19 16:30 O2 Sat (%) 92 02/24/19 16:30 O2 Delivery Mode Room Air Allergies/Adverse Reactions: No Known Allergies Allergy (Verified 02/07/19 14:57) Home Medications: Medication Instructions Recorded Levothyroxine [Synthroid 25 mcg 37.5 mcg PO DAILY06 05/15/10 (*)] amLODIPine BESYLATE [Norvasc 10 mg 10 mg PO DAILY 05/15/10 (*)] buPROPion SR [Wellbutrin 150mg SR 150 mg PO BID 11/07/16 (*)] Aspirin [Aspirin 81mg (*)] 81 mg PO DAILY 01/20/19 Hydrochlorothiazide 02/07/19 Medical Decision Making - Diagnostics Imaging Results: Imaging Impressions Foot X-Ray 02/24/19 16:31 Impression: 1. Indeterminate age posttraumatic deformity of the head of the distal fifth phalanx. 2. Hallux valgus. 3. [place] soft tissue swelling of the foot. Extremity Venous Study 02/24/19 17:35 Impression: No evidence of deep vein thrombosis in the left lower extremity. Results called and discussed with MICA SOLANO M.D. on 02/24/2019 at 18:43. Imaging: Discussed imaging studies w/ call center coordinator Radiologist Procedures: Procedure: Splint placement. A postop shoe splint was applied. After application of the splint I returned and re-examined the patient. The splint was adequately immobilizing the joint and distal to the splint the patient's circulation and sensation was intact. ED Course/Re-evaluation: We discussed the fracture. Ultrasound pending. Lab work otherwise reassuring. 6:45 p.m. ultrasound negative. No clinical concern for ischemia. Will treat with a brace and rest and elevation and pain control. Patient and family understand agree with this plan. She states that she has pain medicine at home for her chronic back pain. Will treat with ibuprofen now. Differential Diagnosis: Partial list of the Differential diagnosis considered include but were not limited to; fracture, contusion, DVT, arthritis and although unlikely based on the history and physical exam, I also considered gout, septic joint, ischemia. I discussed these differential diagnoses and the plan with the patient as well as the usual and expected course. The patient understands that the diagnosis is provisional and that in medicine we are not always correct and that further workup is often warranted. Usual and customary warnings were given. All of the patient's questions were answered. The patient was instructed to return to the emergency department should the symptoms at all worsen or return, otherwise to followup with the physician as we discussed. - Data Points Laboratory Results: Laboratory Results 02/24/19 16:47 02/24/19 16:47 02/24/19 02/24/19 02/24/19 16:47 16:47 16:47 WBC 10.27 10^3/uL H 10^3/uL (3.80-9.50) RBC 4.07 10^6/uL L 10^6/uL (4.18-5.33) Hgb 11.7 g/dL L g/dL (12.6-16.3) Hct 35.2 % L % (38.0-47.0) MCV 86.5 fL fL (81.5-99.8) MCH 28.7 pg pg (27.9-34.1) MCHC 33.2 g/dL g/dL (32.4-36.7) RDW 15.1 % % (11.5-15.2) Plt Count 306 10^3/uL 10^3/uL (150-400) MPV 10.3 fL fL (8.7-11.7) Neut % (Auto) 68.4 % % (39.3-74.2) Lymph % (Auto) 16.1 % % (15.0-45.0) [place] % (Auto) 13.1 % H % (4.5-13.0) Eos % (Auto) 1.5 % % (0.6-7.6) Baso % (Auto) 0.5 % % (0.3-1.7) Nucleat RBC Rel Count 0.0 % % (0.0-0.2) Absolute Neuts (auto) 7.03 10^3/uL H 10^3/uL (1.70-6.50) Absolute Lymphs (auto) 1.65 10^3/uL 10^3/uL (1.00-3.00) Absolute Monos (auto) 1.35 10^3/uL H 10^3/uL (0.30-0.80) Absolute Eos (auto) 0.15 10^3/uL 10^3/uL (0.03-0.40) Absolute Basos (auto) 0.05 10^3/uL 10^3/uL (0.02-0.10) Absolute Nucleated RBC 0.00 10^3/uL 10^3/uL (0-0.01) Immature Gran % 0.4 % % (0.0-1.1) Immature Gran # 0.04 10^3/uL 10^3/uL (0.00-0.10) D-Dimer 1.32 ug/mLFEU H ug/mLFEU (0.00-0.50) Sodium 135 mEq/L mEq/L (135-145) Potassium 3.4 mEq/L L mEq/L (3.5-5.2) Chloride 101 mEq/L mEq/L (97-110) Carbon Dioxide 24 mEq/l mEq/l (22-31) Anion Gap 10 mEq/L mEq/L (6-14) BUN 12 mg/dL mg/dL (7-23) Creatinine 0.7 mg/dL mg/dL (0.6-1.0) Estimated GFR > 60 Glucose 98 mg/dL mg/dL (70-100) Uric Acid 4.3 mg/dL mg/dL (2.5-6.8) Calcium 8.9 mg/dL mg/dL (8.5-10.4) Medications Given: Discontinued Medications Ibuprofen (Motrin) 600 mg PO EDNOW ONE Stop: 02/24/19 18:56 Last Admin: 02/24/19 18:57 Dose: 600 mg Departure - Departure Disposition: Home, Routine, Self-Care Clinical Impression: Toe fracture, left Qualifiers: Encounter type: initial encounter Toe: lesser toe Fracture type: closed Phalanx : distal Fracture alignment: nondisplaced Qualified Code(s): S92.535A - Nondisplaced fracture of distal phalanx of left lesser toe(s), initial encounter for closed fracture Condition: Good Instructions: Toe Fracture (ED) Referrals: Patient,NotPresent [Unknown] - As per Instructions
[2019-02-24 17:03] LABS: PLATELET COUNT 306 10^3/uL (150-400)
[2019-02-24] MEDS ORDERED: IBUPROFEN 600 MG TAB PO ONE ×2 (18:54→18:55)
[2019-02-24 18:58] VITALS: BP 151/90
== END 2019-02-24 19:13 | disposition home or self-care (01) ==
LOC: EDUNIT#
DX: S92.535A Nondisplaced fracture of distal phalanx of left lesser toe(s), initial encounter for closed fracture (principal); M20.12 Hallux valgus (acquired), left foot; X58.XXXA Exposure to other specified factors, initial encounter; Y92.009 Unspecified place in unspecified non-institutional (private) residence as the place of occurrence of the external cause